=== PATIENT | female | born 2000 | race Caucasian/White ===

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

== ENCOUNTER 2020-07-09 21:29 | Emergency (ER) | payer SELFPAY ==
[~2020-07-09 21:29] MED LIST: LODINE CAP 300300 MG PO
== END 2020-07-09 22:00 | disposition left against medical advice (07) ==
LOC: ER1 21:29
DX: O99.891 Other specified diseases and conditions complicating pregnancy (principal); R10.30 Lower abdominal pain, unspecified; Z3A.17 17 weeks gestation of pregnancy; Z53.21 Procedure and treatment not carried out due to patient leaving prior to being seen by health care provider

== ENCOUNTER 2020-11-19 00:24 | Outpatient (CLI) | payer OTHER | END 2020-11-19 03:00 | disposition home or self-care (01) | LOC: GENOP 00:24 | DX: O47.03 False labor before 37 completed weeks of gestation, third trimester (principal); Z3A.36 36 weeks gestation of pregnancy | CPT/HCPCS: G0463 ==

== ENCOUNTER 2020-12-11 16:37 | Inpatient (IN) | payer OTHER ==
[~2020-12-11] VITALS: Ht 165.1 cm; Wt 74.8 kg
[2020-12-11 17:32] LABS: HEMOGLOBIN 11.5 gm/dl (12.3-15.3); RED BLOOD COUNT 4.34 M/UL (4.00-5.10); WHITE BLOOD COUNT 15.1 K/UL (4.5-11.0)
[2020-12-11] MEDS ORDERED: PRENATAL VITAM1 EAC8 PO (19:12)
[2020-12-12] MEDS ORDERED: DOK100 MG PO (05:27)
[2020-12-12] MEDS ORDERED: IBUPROFEN600 MG PO (05:27)
[2020-12-13 06:29] LABS: HEMOGLOBIN 10.2 gm/dl (12.3-15.3)
== END 2020-12-13 13:11 | disposition home or self-care (01) | DRG 807 ==
LOC: GENOP 16:37 → OB 16:57
PROVIDERS: ADMIT Obstetrics & Gynecology
PROC: 4A1HXCZ Monitoring of Products of Conception, Cardiac Rate, External Approach (ICD-10-PCS; 2020-12-11)
PROC: 10E0XZZ Delivery of Products of Conception, External Approach (ICD-10-PCS; principal; 2020-12-12)
PROC: 3E033VJ Introduction of Other Hormone into Peripheral Vein, Percutaneous Approach (ICD-10-PCS; 2020-12-12)
DX: O80 Encounter for full-term uncomplicated delivery (principal); Z37.0 Single live birth; Z3A.39 39 weeks gestation of pregnancy; Z20.822 Contact with and (suspected) exposure to COVID-19; Z87.440 Personal history of urinary (tract) infections; Z80.9 Family history of malignant neoplasm, unspecified; Z82.49 Family history of ischemic heart disease and other diseases of the circulatory system
CPT/HCPCS: 36415; 51702; 81001; 82800; 85014; 85018; 85025; J0595; J2405; J2590; U0003